=== PATIENT | male | born 1985 | race Caucasian/White ===

== ENCOUNTER 2020-09-22 11:18 | Day surgery (SDC) | payer MEDICAID ==
[~2020-09-22] VITALS: Ht 177.8 cm; Wt 71.0 kg
[2020-09-22 12:30] VITALS: BP 127/62
[2020-09-22 13:30] VITALS: BP 137/77
== END 2020-09-22 13:45 | disposition home or self-care (01) ==
LOC: SSTAY O 11:18
PROVIDERS: ATTEND Radiology Vascular & Interventional Radiology
DX: R22.1 Localized swelling, mass and lump, neck (principal); Z20.828 Contact with and (suspected) exposure to other viral communicable diseases
CPT/HCPCS: 10005; 10007; 36415; 87635

== ENCOUNTER 2021-06-25 11:41 | Emergency (ER) | payer MEDICAID ==
[~2021-06-25] VITALS: Ht 177.8 cm; Wt 70.5 kg
[2021-06-25 12:13] VITALS: BP 145/100
[2021-06-25] MEDS ORDERED: SULF1TAB45 PO (12:58)
[2021-06-25] MEDS ORDERED: CEPH250T PO (12:58)
== END 2021-06-25 13:09 | disposition home or self-care (01) ==
LOC: ER 11:41
DX: T81.49XA Infection following a procedure, other surgical site, initial encounter (principal); L02.416 Cutaneous abscess of left lower limb
CPT/HCPCS: 87070; 87077; 87186; 99283

== ENCOUNTER 2023-08-03 16:25 | Emergency (ER) | payer MEDICAID ==
[~2023-08-03] VITALS: Ht 177.8 cm; Wt 72.5 kg
[2023-08-03] MEDS ORDERED: TETanus/Pertussis (Acell)/Diphther VAC/PF (Tdap-Adult) 0.5ml syringe IMVAC ONE (17:30)
[2023-08-03] MEDS ORDERED: LIDOcaine 1% 30ml preserv. free vial IJ ONE (17:30)
[2023-08-03] MEDS ORDERED: CefTRIAXone/D5W-Rocephin 1gm 50 ML IV ONE (18:40)
[2023-08-03] MEDS ORDERED: normal saline 1000ML IV soln IVB ONE (18:40)
[2023-08-03] MEDS ORDERED: sulfamethoxazole/trimethoprim DS (800/160mg) tablet PO ONE (18:40)
--- NOTE | 2023-08-03 19:04 | NUR ---
Pt denies feeling ferverish at this time. He denies any cold chills, or body aches at this time. Pt states that he drinks "A lot" of whiskey usually daily; however he has not dranken alcohol today.
[2023-08-03] MEDS ORDERED: SULF1TAB49 PO (19:32)
[2023-08-03] MEDS ORDERED: CEPH-585 PO (19:32)
[2023-08-03 20:28] VITALS: BP 167/122; PULSE 106; RESP 16; TEMP 100.2; O2SAT 98
== END 2023-08-03 20:30 | disposition home or self-care (01) ==
LOC: ER 16:25
DX: M79.601 Pain in right arm (principal); L02.511 Cutaneous abscess of right hand; L03.011 Cellulitis of right finger
CPT/HCPCS: 73140; 87070; 87077; 87186; 90471; 90715; 96361; 96365; 99284; J0696; J7030; A6449

== ENCOUNTER 2024-11-13 11:59 | Emergency (ER) | payer MEDICAID ==
[~2024-11-13] VITALS: Ht 180.3 cm; Wt 68.2 kg
[2024-11-13 12:25] VITALS: BP 138/88; PULSE 89; RESP 16; TEMP 98.6; O2SAT 99
== END 2024-11-13 14:28 | disposition home or self-care (01) ==
LOC: ER 12:00
DX: S62.306A Unspecified fracture of fifth metacarpal bone, right hand, initial encounter for closed fracture (principal); Y04.0XXA Assault by unarmed brawl or fight, initial encounter; Y93.89 Activity, other specified; Y92.89 Other specified places as the place of occurrence of the external cause; Y99.8 Other external cause status
CPT/HCPCS: 29125; 73130; 99283; A6446; A6449